=== PATIENT | male | born 1955 | race Caucasian/White ===

== ENCOUNTER 2020-09-01 06:50 | Day surgery (SDC) | payer MEDICAID ==
[2020-09-01] MEDS ORDERED: Propofol 200 MG/20 ML SDV ONE (07:00)
[2020-09-01] MEDS ORDERED: Midazolam 1 MG/ML 2 ML SDV ONE (07:00)
[2020-09-01] MEDS ORDERED: fentaNYL 100 MCG/2 ML SDV ONE (07:00)
[2020-09-01] MEDS ORDERED: Dextrose 5%-Lactated Ringers 1,000 ML IV SCH (07:30)
--- NOTE | 2020-09-09 08:40 | OR ---
DATE OF PROCEDURE: 09/01/2020 SURGEON: Tulio Muñoz MD PREOPERATIVE DIAGNOSIS: History of colon polyps. POSTOPERATIVE DIAGNOSES: 1. Single recurrent polyp in cecum. 2. Uncomplicated left colonic diverticulosis. OPERATIVE PROCEDURE: Flexible colonoscopy with polypectomy by snare technique. ANESTHESIA: IV sedation. INDICATIONS FOR PROCEDURE: A 65-year-old male presenting for followup colonoscopy. After preop evaluation and discussion, he wished to proceed with colonoscopy with biopsies and/or polypectomy as indicated. Potential risks including bleeding and perforation were discussed, and the patient wishes to proceed. DETAILS OF PROCEDURE: The patient was taken to the operating room, placed in a left lateral decubitus position. IV sedation was administered, after which the initial digital rectal exam was performed and was unremarkable. Colonoscope was then passed into the rectum with retroflexion revealing uncomplicated hemorrhoidal columns. Scope was eventually passed to the cecum. The prep was quite good with only small amount of liquid stool present. The patient was noted to have some colonic diverticulosis, which was otherwise uncomplicated. Apart from that, there was 1 very small polyp in the cecum that was removed by means of snare technique and sent for histologic evaluation. Good hemostasis was confirmed at the polypectomy site. The scope was withdrawn. No additional abnormalities were noted, and the procedure was then concluded. We will notify the patient regarding the path report. If it is an adenomatous polyp, he probably should have repeat colonoscopy in 3 years. If it is a hyperplastic polyp or non- neoplastic, then 5-year followup would be appropriate. Tulio Muñoz MD /[id number]
== END 2020-09-01 11:38 | disposition home or self-care (01) ==
LOC: JP.SDS 06:50
PROVIDERS: ATTEND Surgery
DX: Z12.11 Encounter for screening for malignant neoplasm of colon (principal); K63.5 Polyp of colon; K57.30 Diverticulosis of large intestine without perforation or abscess without bleeding; K64.9 Unspecified hemorrhoids; G47.33 Obstructive sleep apnea (adult) (pediatric); F17.200 Nicotine dependence, unspecified, uncomplicated; Z86.010 Personal history of colon polyps; Z98.890 Other specified postprocedural states
CPT/HCPCS: 45385; 88305; J2250; J2704; J3010; J7121

== ENCOUNTER 2023-09-16 06:56 | Day surgery (SDC) | payer MEDICARE, BC ==
[2023-09-16] MEDS ORDERED: Propofol 200 MG/20 ML SDV ONE (07:20)
[2023-09-16] MEDS ORDERED: Midazolam 1 MG/ML 2 ML SDV ONE (07:21)
[2023-09-16] MEDS ORDERED: fentaNYL 50 MCG/ML SDV ONE (07:21)
[2023-09-16] MEDS ORDERED: Sodium Chloride 0.9% 1,000 ML IV SCH (07:30)
== END 2023-09-16 09:55 | disposition home or self-care (01) ==
LOC: JP.SDS 06:56
PROVIDERS: ATTEND Surgery
DX: Z12.11 Encounter for screening for malignant neoplasm of colon (principal); K22.89 Other specified disease of esophagus; K57.30 Diverticulosis of large intestine without perforation or abscess without bleeding; K44.9 Diaphragmatic hernia without obstruction or gangrene; I10 Essential (primary) hypertension; K21.00 Gastro-esophageal reflux disease with esophagitis, without bleeding; E66.9 Obesity, unspecified; Z85.46 Personal history of malignant neoplasm of prostate; Z68.27 Body mass index [BMI] 27.0-27.9, adult
CPT/HCPCS: 43239; 88305; G0121; J2250; J2704; J3010; J7030